=== PATIENT | male | born 1980 | race Caucasian/White ===

== ENCOUNTER 2021-07-21 14:16 | Emergency (ER) | payer OTHER, SELFPAY ==
--- NOTE | ~2021-07-21 | CT_ITS ---
EXAMINATION: HEAD CT WITHOUT CONTRAST CERVICAL SPINE CT WITHOUT CONTRAST CLINICAL INFORMATION: Fall from height COMPARISON: None. TECHNIQUE: Contiguous axial imaging of the head was performed without the administration of IV contrast. Axial multidetector volumetric images were also performed through the cervical spine without contrast. Multiplanar reconstructed images in coronal and sagittal orientations were submitted. DOSE: 1169 mGy-cm FINDINGS: HEAD: There is no evidence of acute intracranial hemorrhage or territorial infarction. No abnormal mass-effect or midline shift. No extra-axial fluid collections. Cook to white matter differentiation is well preserved. The ventricles are normal in size and configuration. . No acute calvarial fracture seen. The sinuses and mastoid air cells are clear. CERVICAL SPINE: Mild increased lordotic curvature. Posterior alignment is maintained without significant subluxation. No acute fracture is identified of the vertebral bodies or posterior elements. The craniocervical and atlantoaxial articulations are normal. Scattered mild cervical spondylosis, with mild endplate changes at multiple levels, mild disc height narrowing at C6-C7.. Central canal appear patent without appreciable stenoses. No significant paravertebral soft tissue swelling. The paraspinal muscles appear within normal limits. No suspicious thyroid findings. Mild apical pleural parenchymal scarring CT/CT cervical spine wo con IMPRESSION: 1. No CT evidence of acute intracranial hemorrhage or edematous territorial infarction. 2. No CT evidence of acute fracture or malalignment in the cervical spine.
--- NOTE | ~2021-07-21 | XR_ITS ---
EXAMINATION: LEFT ANKLE, LEFT FOOT, LEFT KNEE, AND LEFT TIBIA AND FIBULA. CLINICAL INFORMATION: Trauma with pain COMPARISON: None TECHNIQUE: AP and lateral views of the left tibia and fibula, 3 views of the left foot, 2 views of the left ankle, and 4 views of the left knee. FINDINGS: There is no evidence of acute fracture or dislocation of the left knee. Left knee joint spaces are maintained. No significant effusion is appreciated. AP and lateral views of the left tibia and fibula do not demonstrate any evidence of acute fracture or dislocation. No significant soft tissue swelling is seen. There is no evidence of acute fracture or dislocation of the left foot. Left ankle mortise is intact. There is mild soft tissue swelling seen about the medial aspect of the distal tibia. Views of the left foot do not demonstrate any evidence of acute fracture or dislocation. Joint spaces are maintained. XR/XR tibia fibula LT 2V IMPRESSION: No significant bony abnormality identified of the left knee, left tibia and fibula, left ankle, or left foot.
--- NOTE | ~2021-07-21 | CT_ITS ---
EXAMINATION: HEAD CT WITHOUT CONTRAST CERVICAL SPINE CT WITHOUT CONTRAST CLINICAL INFORMATION: Fall from height COMPARISON: None. TECHNIQUE: Contiguous axial imaging of the head was performed without the administration of IV contrast. Axial multidetector volumetric images were also performed through the cervical spine without contrast. Multiplanar reconstructed images in coronal and sagittal orientations were submitted. DOSE: 1169 mGy-cm FINDINGS: HEAD: There is no evidence of acute intracranial hemorrhage or territorial infarction. No abnormal mass-effect or midline shift. No extra-axial fluid collections. Cook to white matter differentiation is well preserved. The ventricles are normal in size and configuration. . No acute calvarial fracture seen. The sinuses and mastoid air cells are clear. CERVICAL SPINE: Mild increased lordotic curvature. Posterior alignment is maintained without significant subluxation. No acute fracture is identified of the vertebral bodies or posterior elements. The craniocervical and atlantoaxial articulations are normal. Scattered mild cervical spondylosis, with mild endplate changes at multiple levels, mild disc height narrowing at C6-C7.. Central canal appear patent without appreciable stenoses. No significant paravertebral soft tissue swelling. The paraspinal muscles appear within normal limits. No suspicious thyroid findings. Mild apical pleural parenchymal scarring CT/CT head/brain wo con IMPRESSION: 1. No CT evidence of acute intracranial hemorrhage or edematous territorial infarction. 2. No CT evidence of acute fracture or malalignment in the cervical spine.
--- NOTE | ~2021-07-21 | XR_ITS ---
EXAMINATION: LEFT ANKLE, LEFT FOOT, LEFT KNEE, AND LEFT TIBIA AND FIBULA. CLINICAL INFORMATION: Trauma with pain COMPARISON: None TECHNIQUE: AP and lateral views of the left tibia and fibula, 3 views of the left foot, 2 views of the left ankle, and 4 views of the left knee. FINDINGS: There is no evidence of acute fracture or dislocation of the left knee. Left knee joint spaces are maintained. No significant effusion is appreciated. AP and lateral views of the left tibia and fibula do not demonstrate any evidence of acute fracture or dislocation. No significant soft tissue swelling is seen. There is no evidence of acute fracture or dislocation of the left foot. Left ankle mortise is intact. There is mild soft tissue swelling seen about the medial aspect of the distal tibia. Views of the left foot do not demonstrate any evidence of acute fracture or dislocation. Joint spaces are maintained. XR/XR knee LT 3V IMPRESSION: No significant bony abnormality identified of the left knee, left tibia and fibula, left ankle, or left foot.
--- NOTE | ~2021-07-21 | XR_ITS ---
EXAMINATION: LEFT ANKLE, LEFT FOOT, LEFT KNEE, AND LEFT TIBIA AND FIBULA. CLINICAL INFORMATION: Trauma with pain COMPARISON: None TECHNIQUE: AP and lateral views of the left tibia and fibula, 3 views of the left foot, 2 views of the left ankle, and 4 views of the left knee. FINDINGS: There is no evidence of acute fracture or dislocation of the left knee. Left knee joint spaces are maintained. No significant effusion is appreciated. AP and lateral views of the left tibia and fibula do not demonstrate any evidence of acute fracture or dislocation. No significant soft tissue swelling is seen. There is no evidence of acute fracture or dislocation of the left foot. Left ankle mortise is intact. There is mild soft tissue swelling seen about the medial aspect of the distal tibia. Views of the left foot do not demonstrate any evidence of acute fracture or dislocation. Joint spaces are maintained. XR/XR foot LT min 3V IMPRESSION: No significant bony abnormality identified of the left knee, left tibia and fibula, left ankle, or left foot.
--- NOTE | ~2021-07-21 | XR_ITS ---
EXAMINATION: LEFT ANKLE, LEFT FOOT, LEFT KNEE, AND LEFT TIBIA AND FIBULA. CLINICAL INFORMATION: Trauma with pain COMPARISON: None TECHNIQUE: AP and lateral views of the left tibia and fibula, 3 views of the left foot, 2 views of the left ankle, and 4 views of the left knee. FINDINGS: There is no evidence of acute fracture or dislocation of the left knee. Left knee joint spaces are maintained. No significant effusion is appreciated. AP and lateral views of the left tibia and fibula do not demonstrate any evidence of acute fracture or dislocation. No significant soft tissue swelling is seen. There is no evidence of acute fracture or dislocation of the left foot. Left ankle mortise is intact. There is mild soft tissue swelling seen about the medial aspect of the distal tibia. Views of the left foot do not demonstrate any evidence of acute fracture or dislocation. Joint spaces are maintained. XR/XR ankle LT min 3V IMPRESSION: No significant bony abnormality identified of the left knee, left tibia and fibula, left ankle, or left foot.
[2021-07-21 14:19] VITALS: BP 156/90; PULSE 71; RESP 18; TEMP 36.8; O2SAT 99; BMI 27.2
--- NOTE | 2021-07-21 16:15 | ED_ITS ---
HPI - Extremity Problem General Chief complaint: Extremity Injury, Upper Stated complaint: multi inj at work Time Seen by Provider: 07/21/21 16:04 Source: patient Mode of arrival: ambulatory Limitations: no limitations History of Present Illness HPI Narrative: 41-year-old male presents for left leg pain after a parachuting incident today just prior to arrival. Patient was training with the [employer], was p arachuting, and the wind dragged him on to the [place] and then onto the grass. Patient has multiple abrasions, and complaining of right calf pain, right knee pain, right ankle and foot pain. Patient was helmeted, the helmet did not crack, he has no neck pain, no concussive symptoms, no headache, no blurry vision No loss of consciousness, he is not on blood thinners. He is up-to-date on his tetanus. MD Complaint: extremity pain Onset (ago): hour(s) (1) Pain Consistency: constant Location: right and lower extremity Severity scale (1-10): 6 Quality: aching Radiation: none Relieving factors: immobilization Exacerbating factors: range of motion, weight bearing and walking Associated symptoms: denies other symptoms Context: other (parachuting accident) Related Data Allergies Allergy/AdvReac Type Severity Reaction Status Date / Time No Known Allergies Allergy Verified 07/21/21 14:18 Review of Systems Constitutional: Constitutional: Denies body ache(s), Denies chills, Denies fatigue, Denies fever(s), Denies headache(s), Denies malaise and Denies weakness Eyes: Eyes: Denies blurry vision, Denies change in vision and Denies diplopia ENT: Denies vertigo, Denies dizziness, Denies otalgia, Denies facial pain, Denies headache(s), Denies mouth pain, Denies neck pain, Denies nose pain, Denies post nasal drip, Denies sinus pain, Denies sinus pressure, Denies sore throat and Denies throat swelling Cardiovascular: Cardiovascular: Denies chest pain, Denies syncope, Denies leg edema, Denies lightheadedness, Denies Loss of Consciousness, Denies palpitations and Denies dyspnea Respiratory: Respiratory: Denies chest congestion, Denies cough and Denies dyspnea Gastrointestinal: Gastrointestinal: Denies abdominal pain, Denies hematochezia, Denies constipation, Denies diarrhea, Denies nausea and Denies vomiting Musculoskeletal: Musculoskeletal: Denies deformity, Reports arthralgias, Denies neck pain, Denies numbness, Denies tingling and Reports other (pain left LE) Integumentary/Breasts: Comments: abrasions to left LE, left UE, right UE Neurologic: Denies confusion, Denies vertigo, Denies dizziness, Denies syncope, Denies headache(s), Denies numbness, Denies tingling and Denies weakness Psychiatric: Psychiatric: Denies anxiety, Denies confusion and Denies depression Endocrine: Endocrine: Denies fatigue and Denies palpitations Allergic/Immunologic: Allergic/Immunologic: Denies throat swelling PMFSH Social History Social History Advance Directives: No Advance Directives Information Provided: Yes Physical Exam Vital Signs: Vital Signs: Last Vital Signs Temp 98.3 F 07/21/21 14:19 Pulse 71 07/21/21 14:19 Resp 18 07/21/21 14:19 BP 156/90 H 07/21/21 14:19 Pulse Ox 99 07/21/21 14:19 O2 Del Method 07/21/21 14:19 BMI result Body Mass Index 27.2 Const: General: No confusion Nutritional Appearance: well nourished Orientation/consciousness: No confusion Limitations: no limitations HEENT: Head: Yes normal to inspection, Yes normocephalic and Yes atraumatic Ears: hearing grossly normal bilaterally, external ears normal, TM's normal bilaterally and EAC's normal General nose exam: Normal external nose present Face and sinus: Yes normal facial exam and Yes sinuses nontender Mouth: Normal oral and palatal mucosa present Throat: Yes posterior oropharynx normal Eyes: Conjunctivae: conjunctivae normal Pupils: Equal, round and reactive pupils present EOM: EOMs intact bilaterally Neck: Neck: Yes full ROM, Yes no lymphadenopathy and Yes supple Resp: Effort & Inspection: normal respiratory effort and able to speak in complete sentences Auscultation: clear to auscultation bilaterally, no crackles, no rales, no rhonchi and no wheezes Cardio: Rate: regular rate Rhythm: regular rhythm Heart sounds: S1 normal heart sound present and S2 normal heart sound present GI: Inspection: Yes normal to inspection Palpation (GI): Soft to palpation, nontender, no guarding and not rigid Percussion: Yes normal to percussion Auscultation: normal bowel sounds : General: Yes no CVA tenderness Back/Spine/Pelvis: Back: no CVA tenderness Cervical Spine: normal cervical lordosis, cervical ROM normal, No Cervical spine tenderness, No step off deformity and No cervical ROM abnormal Thoracic/Lumbar Spine: No paraspinal muscle tenderness, No thoraco-lumbar ROM limited, No thoraco-lumbar spasm, No thoracic spinal tenderness and No lumbar spinal tenderness Skin: Other: Abrasion to dorsum of right wrist, to the olecranon process of left elbow, and road rash on lateral left calf Neuro: General: No confusion Cranial nerves: Yes Equal, round and reactive pupils present Extrem: Left lower extremity: normal capillary refill, knee, lower leg Details: erythema, tenderness Location: of the midshaft tibia, localized swelling, abrasion and warmth; no lacerations, no ecchymosis, no crepitus and no deformity, ankle and foot Details: normal capillary refill, tenderness Location: of the mid foot Location: laterally and dorsally, toes with normal ROM and ecchymosis Psych: Appearance: grossly normal Affect: normal affect Attitude: cooperative Thought process: Normal thought process present Course Course Course Narrative: 31 year male presents for a parachuting accident, complaining of left lower extremity pain. Patient shows me a video of him coming down from the [place] very fast with his parachute, and hitting the [place] and tumbling, and then being dragged along the grass by his parachute. On exam, patient has abrasions on his left lateral calf, left elbow and dorsal right wrist, patient has no cervical spine point tenderness, no vertebral point tenderness in his entire spine, neurologically intact with no concussive symptoms. Patient is tender over his anterior left knee, mid shaft tibia, and just below the ankle on his left dorsal lateral foot. Will do wound care, bacitracin nonstick dressing, will get x-rays of patient's right knee, right tib-fib, right ankle and foot. Discussed with patient I would like to do head CT and neck CT, given that patient had a fall from height. Reevaluation(s) Reevaluation #1: CT/CT cervical spine wo con IMPRESSION: 1. No CT evidence of acute intracranial hemorrhage or edematous territorial infarction. 2. No CT evidence of acute fracture or malalignment in the cervical spine. ? XR/XR tibia fibula LT 2V IMPRESSION: No significant bony abnormality identified of the left knee, left tibia and fibula, left ankle, or left foot.? no fracture. Patient's left lower extremity is 42 cm in diameter of his calf, right calf is 40 cm. Patient has a 1/10 pain resting, when he is walking it is a 6/10 pain. Without fracture, without severe crush injury, I do not think this patient is developing a compartment syndrome; there is no tingling, paresthesias, no pulselessness, no paralysis or leg weakness, no pallor, pain is not out of proportion. Gave patient the above return precautions, discussed risk of compartment syndrome, patient verbalized agreement and understanding of the plan. Suggested rest, ice, compression, elevation, gave wound care instructions for abrasions and infection precautions Discharge Plan Discharge Clinical Impression: Abrasion, Injury resulting from fall from height Patient Disposition: Home, Self-Care Instructions: Abrasion (ED), R.I.C.E. Treatment (ED) Additional Instructions: tomorrow, please remove the dressings we placed on your abrasions, wash with soap and water, pat dry, thin layer of bacitracin, nonstick dressing. Do this every day for the next 4 days, after that you can leave it open to the air. If redness, swelling, warmth, or pain develops, please return to be seen, these are signs of infection you have no fracture in your left leg, no bleeding in your skull, no skull or neck fractures. if the pain in your leg suddenly becomes worse, if you feel numbness and tingling in your leg. If you feel like you cannot move your leg, if your leg becomes pale, you must return to the emergency room immediately because these are signs of compartment syndrome rest, ice, elevate your leg, take ibuprofen for pain
[2021-07-21] MEDS: Acetaminophen 325 MG TABLET 975 MG PO (17:21)
== END 2021-07-21 18:46 | disposition home or self-care (01) ==
PROVIDERS: Emergency Provider Emergency Medicine
DX: S80.812A Abrasion, left lower leg, initial encounter (principal); S50.312A Abrasion of left elbow, initial encounter; S60.811A Abrasion of right wrist, initial encounter; M25.562 Pain in left knee; M25.572 Pain in left ankle and joints of left foot; V97.22XA Parachutist injured on landing, initial encounter; Y93.89 Activity, other specified; Y92.84 Military training ground as the place of occurrence of the external cause; Y99.1 Military activity
CPT/HCPCS: 70450; 72125; 73562; 73590; 73610; 73630; 99283; 99284